=== PATIENT | male | born 1975 | race Caucasian/White ===

== ENCOUNTER 2018-06-08 14:49 | Emergency (ER) | payer OTHER ==
[~2018-06-08] VITALS: Ht 177.8 cm; Wt 93.0 kg
--- NOTE | ~2018-06-08 | EKG ---
[facility] [address] [facility] [place], [place] [address] Draft EKG completed, results pending confirmation PATIENT NAME: TIGIST WILSON JASWINDER Electrocardiogram DATE OF : 77 PHYSICIAN: PRELIMINARY REPORT #: [id number] REPORT IS CONFIDENTIAL AND NOT TO BE RELEASED WITHOUT AUTHORIZATION
[~2018-06-08 14:49] MED LIST: BENADRYL25 MG PO; CLONAZEPAM0.5 MG PO; COL-RITE100 MG PO; COUMADIN3 MG PO; LAXATIVE5 M1 PO; LEXAPRO10 MG PO; OMEPRAZOLE20 MG PO
--- NOTE | 2018-06-08 22:05 | EKG ---
[facility] [address] [facility] [place] [address] Signed Undetermined rhythm Rightward axis ST \T\ Marked T wave abnormality, consider inferior ischemia Abnormal ECG When compared with ECG of 08-JUN-2018 14:58, (Unconfirmed) Current undetermined rhythm precludes rhythm comparison, needs review ST more elevated in Inferior leads Confirmed by THOM MANZANO MD ([id number]) on 06/08/2018 10:05:37 PM Electronically Signed By: THOM MANZANO MD 06/08/18 2205 PATIENT NAME: TIGIST IWLSON Electrocardiogram DATE OF : 77 PHYSICIAN: THOM MANZANO MD REPORT #: [id number] REPORT IS CONFIDENTIAL AND NOT TO BE RELEASED WITHOUT AUTHORIZATION
--- NOTE | 2018-06-08 22:06 | EKG ---
[facility] [address] [facility] [place] [address] Signed Sinus tachycardia Rightward axis ST \T\ T wave abnormality, consider inferior ischemia ST \T\ T wave abnormality, consider anterolateral ischemia Abnormal ECG When compared with ECG of 08-JUN-2018 16:50, (Unconfirmed) No significant change was found Confirmed by THOM MANZANO MD ([id number] on 06/08/2018 10:06:13 PM Electronically Signed By: THOM MANZANO MD 06/08/18 2206 PATIENT NAME: TIGIST WILSON Electrocardiogram DATE OF : 77 PHYSICIAN: THOM MANZANO MD REPORT #: [id number] REPORT IS CONFIDENTIAL AND NOT TO BE RELEASED WITHOUT AUTHORIZATION
== END 2018-06-08 19:30 | disposition home or self-care (01) ==
LOC: ED 14:49
PROC: 0T9B70Z Drainage of Bladder with Drainage Device, Via Natural or Artificial Opening (ICD-10-PCS; principal; 2018-06-08)
DX: R07.9 Chest pain, unspecified (principal); R53.1 Weakness; Z88.5 Allergy status to narcotic agent; Z88.0 Allergy status to penicillin; Z79.899 Other long term (current) drug therapy
CPT/HCPCS: 31500; 51701; 70450; 70496; 70498; 71045; 71275; 80053; 84484; 85025; 85610; 85730; 93005; 93010; 94002; 94799; 96374; 96376; 99285; J0330; J2250; J2704; J3010; Q9967